=== PATIENT | male | born 1980 | race Caucasian/White ===

== ENCOUNTER 2022-07-08 14:22 | Outpatient (CLI) | payer BC, SELFPAY ==
[2022-07-09 13:32] LABS: Albumin* 4.7 g/dL (3.3-5.0); Chloride* 104 mmol/L (96-114); Sodium* 142 mmol/L (135-149)
[2022-07-09 13:33] LABS: Potassium* 4.1 mmol/L (3.6-5.1)
[2022-07-09 13:35] LABS: Alkaline Phosphatase* 51 U/L (40-150); Aspartate Amino Transferase* 25 U/L (12-35); Bilirubin Total* 0.5 mg/dL (0.1-1.5); Blood Urea Nitrogen* 17 mg/dL (5-24); Carbon Dioxide* 31 mmol/L (20-32); Estimated Glomerular Filt Rate 96 ml/min; Glucose* 84 mg/dL (60-115); Total Protein* 7.5 g/dL (6.0-8.3)
[2022-07-09 13:36] LABS: Alanine Aminotransferase* 26 U/L (4-50); Calcium* 9.5 mg/dL (8.4-10.6); HDL Cholesterol* 33 mg/dL (>=40); Triglycerides* 185 mg/dL (40-149)
[2022-07-09 14:16] LABS: HIV 1/2/P24 Combo Screen* Negative (Negative)
[2022-07-09 14:33] LABS: Hepatitis C Virus Antibody* Negative (Negative)
[2022-07-09 15:34] LABS: Cholesterol* 159 mg/dL (90-199); LDL Cholesterol Calculated 89 mg/dL (<100)
== END 2022-07-08 14:23 | disposition home or self-care (01) ==
PROVIDERS: PCP Family Medicine; Visit Provider Family Medicine
DX: R07.9 Chest pain, unspecified (principal); Z13.6 Encounter for screening for cardiovascular disorders; Z11.3 Encounter for screening for infections with a predominantly sexual mode of transmission
CPT/HCPCS: 80053; 80061; 86703; 86803

== ENCOUNTER 2024-05-13 14:48 | Outpatient (CLI) | payer BC, SELFPAY ==
--- OUTSIDE RECORDS SUMMARY | 2024-05-13 14:51 | XMS_ITS ---
Author Organization [facility] Address [address] [place] [address] Care Team Providers Care Cnc Lathe Machinist Name Role Phone Unavailable Unavailable Unavailable Surgery Details Not on file Complications Check Surgery Details section. Procedure Estimated Blood Loss Check Surgery Details section. Procedure Findings Check Surgery Details section. Procedure Specimens Taken Check Surgery Details section.
--- OUTSIDE RECORDS SUMMARY | 2024-05-13 14:51 | XMS_ITS | Clinical Summary ---
Author Organization [facility] Address [address] [place] [address] Care Team Providers Care Change Management Facilitator Name Role Phone None Reported, Pcp Primary Care Provider Unavail able Source Comments Patient records contain information from all sites at [facility]. For routine questions regarding patient records, call [phone] during business hours, M-F 8:00 AM - 5:00 PM Central Time. Record requests for emergency care only can be directed to [phone] at any time.[facility] Allergies Active Allergy Reactions Criticality Noted Date Comments Azithromycin GI intolerance,Nausea And Vomiting 09/26/2016 Medications albuterol (VENTOLIN HFA) 90 mcg/actuation inhaler Inhale 2 puffs every 4 (four) hours as needed. 09/26/2016 Active amoxicillin-pot clavulanate (AUGMENTIN) 875-125 mg per tablet 06/14/2021 Active ofloxacin (OCUFLOX) 0.3 % ophthalmic solution INSTILL ONE DROP IN THE RIGHT EYE FOUR TIMES A DAY 03/12/2021 Active Active Problems Problem Noted Date Diagnosed Date Asthma Exercise Induced Bronchospasm 12/16/2018 Immunizations Name Administration Dates Next Due DTP 11/04/1984,05/14/1981,03/10/1980 ,1979,1979 HepA / HepB 10/30/2010 HepA Adult 05/08/2011 HepB Adult 02/05/2006,09/04/2005 MMR 11/22/1990,12/18/1980 Polio, Unspecified 11/04/1984,05/14/1981, 980,1979 Td (Adult), adsorbed 09/24/2005,02/26/1995 Tdap 10/30/2010 Family History Medical History Relation Name Comments Celiac disease Paternal Grandmother Relation Name Status Comments Paternal Grandmother Social History Tobacco Use Types Packs/Day Years Used Date Smoking Tobacco: Some Days Cigarettes Smokeless Tobacco: Current Chew Last attempted to quit: 11/25/2018 Tobacco Cessation:Ready to Q uit: Not Asked; Counseling Given: Not Answered Alcohol Use Standard Drinks/Week Comments Yes 0 (1 standard drink = 0.6 oz pur e alcohol) Humiliation, Afraid, Rape, and Kick questionnair e Answer Date Recorded Within the last year, have y ou been afraid of your partner or ex-partner? No 06/19/2021 Within the last year, have y ou been humiliated or emotionally abused in other ways by your partner or ex-partner? No Within the last year, have y ou been kicked, hit, slapped, or otherwise physically hurt by your partner or ex-partner? No 06/19/2021 Within the last year, have y ou been raped or forced to have any kind of sexual activity by your partner or ex-partner? No 06/19/2021 Social Connection and Isolat ion Panel [NHANES] Answer Date Recorded In a typical week, how many times do you talk on the phone with family, friends, or neighbors? Twice a week 06/19/2021 How often do you get togethe r with friends or relatives? Once a week 06/19/2021 How often do you attend [facility] or jew services? 1 to 4 times per year 06/19/2021 Do you belong to any clubs o r organizations such as evangelical groups, unions, fraternal or athletic groups, or school groups? Yes 06/19/2021 How often do you attend meet ings of the clubs or organizations you belong to? More than 4 times per year 06/19/2021 Are you , , di vorced, , never , or living with a partner? 06/19/2021 AUDIT-C Answer Date Recorded Q1: How often do you have a drink containing alc ohol? Never 06/19/2021 Average Number of Drinks Not on file 021 Frequency of Binge Drinking Not on file 06/05 Overall Financial Resource Strain (CARDIA) Answe r Date Recorded How hard is it for you to pa y for the very basics like food, housing, medical care, and heating? Not very hard 06/19/2021 PHQ-2 Answer Date Recorded PHQ-2 Score 0 07/29/2019 [facility] - Occupational Stress Questionnaire Answer Date Recorded Do you feel stress - tense, restless, nervous, or anxious, or unable to sleep at night because your mind is troubled all the time - these days? To some extent 06/19/2021 Exercise Vital Sign Answer Date Recorde d On average, how many days pe r week do you engage in moderate to strenuous exercise (like a brisk walk)? 3 days 06/19/2021 On average, how many minutes do you engage in exercise at this level? 80 min 06/19/2021 Hunger Vital Sign Answer Date Recorded Within the past 12 months, y ou worried that your food would run out before you got the money to buy more. Never true 06/19/20 21 Within the past 12 months, t he food you bought just didn't last and you didn't have money to get more. Never true 06/19/2021 PRAPARE - Transportation Answer Date Re corded In the past 12 months, has l ack of transportation kept you from medical appointments or from getting medications? No 06/05 In the past 12 months, has l ack of transportation kept you from meetings, work, or from getting things needed for daily living? No 06/19/2021 Housing Stability Vital Sign Answer Maximiliano e Recorded In the last 12 months, was t here a time when you were not able to pay the mortgage or rent on time? No 06/19/2021 Number of Places Lived in the Last Year Not on f ile 06/19/2021 In the last 12 months, was t here a time when you did not have a steady place to sleep or slept in a jail (including now)? Yes 06/19/2021 Nutrition Answer Date Recorded On average, how many serving s of fruits and vegetables do you eat per day (serving size is equal to 1 cup or approximately the size of a tennis ball)? 2-3 06/19/2021 Dental Answer Date Recorded Dental: Regular Dentist No 07/16/19 23 Employment Answer Date Recorded Employment status Unemployed/not in th e paid workforce but seeking employment 06/19/2021 Education Answer Date Recorded What is the highest level of school you have completed or the highest degree you have received? 10th grade 06/19/2021 Sex and Gender Information Value Date Recorded Sex Assigned at Not on file Legal Sex Male 12:22 PM OUTBOARD SYSTEM OPERATOR Gender Identity Male 06/19/2021 12:39 PM OUTBOARD SYSTEM OPERATOR Sexual Orientation Straight 06/19/2021 12 :39 PM OUTBOARD SYSTEM OPERATOR Last Filed Vital Signs Vital Sign Reading Time Taken Comments Blood Pressure 123/84 11/17/2023 10:55 AM CDT Pulse 64 11/17/2023 10:55 AM CDT Temperature 36.3 ??C (97.3 ??F) 11/17/2023 10:55 AM C DT Respiratory Rate 19 06/21/2023 4:40 PM OUTBOARD SYSTEM OPERATOR Oxygen Saturation 99% 11/17/2023 10:55 AM CDT Inhaled Oxygen Concentration - - Weight 84.8 kg (187 lb) 11/17/2023 10:55 AM CDT Height 174 cm (5' 8.5) 03/05/2018 2:08 PM CDT Body Mass Index 28.02 03/05/2018 2:08 PM CDT Plan of Treatment Health Maintenance Due Date Last Done Comments Lipid (Cholesterol) Screening 1980 Pneumococcal vaccine (0-64 years) (1 of 2 - PCV) 1985 Hepatitis A Vaccines (3 of 3 - Hep A risk 3-dose series) 10/07/2011 05/08/2011, 10/30/2010 Asthma Control Test Questionnaire 12/16/2018 Asthma Management/Exacerbation Questionnaire (AMQ/AEQ) 12/16/2018 Asthma Action Plan 07/29/2020 07/29/2019 Tobacco Cessation counseling 06/19/2022 06/19/2021 Depression Screening (Annual PHQ-2) 07/06/2023 COVID-19 Vaccine (1 - season) 2024 Influenza Vaccine (#1) 2024 DTaP,Tdap,and Td Vaccines (8 - Td or Tdap) 08/21/2031 08/21/2021, 10/30/2010, 09/24/2005, Additional history exists IPV Vaccines Completed 11/04/1984, 11/0 03/1981, 1979, Additional history exists Hepatitis B Vaccines Completed 10/30/2010, 02/05/2006, 09/04/2005 HIV Screening Completed 07/29/2019, 12/02/2018 Hepatitis C Screening Completed 07/29/2019 HPV Vaccines Aged Out No longer eligi ble based on patient's age to complete this topic Procedures Procedure Name Priority Date/Time Associated Diagnosis Comments HCV AB SCRN W/REFLEX TO HCV PCR, S Routine 07/29/2019 11:30 AM OUTBOARD SYSTEM OPERATOR Sexually Transmitted Disease Counseling HIV-1/-2 AG AND AB SCREEN, PLASMA Routine 07/29/2019 11:30 AM OUTBOARD SYSTEM OPERATOR Sexually Transmitted Disease Counseling from Last 3 Months or Most Recently Relevant to Health Maintenance Results * HIV-1/-2 Ag and Ab Screen, Plasma (07/29/2019 11:30 AM OUTBOARD SYSTEM OPERATOR) HIV Ag/Ab Screen, P Negative Negative 07/29/2019 1:06 PM OUTBOARD SYSTEM OPERATOR [facility] Comment: Negative result does not rule out HIV infection. If exposure to HIV infection occurred <14 days ago, contact the laboratory to request addition of HIV-1 RNA detection / quantification test. HIV-1 p24 Ag Screen, P Negative Negative 07/29/2019 1:06 PM OUTBOARD SYSTEM OPERATOR [facility] Comment: Negative result does not rule out HIV infection. If exposure to HIV infection occurred <14 days ago, contact the laboratory to request addition of HIV-1 RNA detection / quantification test. HIV-1 Ab Screen, P Negative Negative 2019 1:06 PM OUTBOARD SYSTEM OPERATOR [facility] Comment: Negative result does not rule out HIV infection. If exposure to HIV infection occurred <14 days ago, contact the laboratory to request addition of HIV-1 RNA detection / quantification test. HIV-2 Ab Screen, P Negative Negative 2019 1:06 PM OUTBOARD SYSTEM OPERATOR [facility] Comment: Negative result does not rule out HIV infection. If exposure to HIV infection occurred <14 days ago, contact the laboratory to request addition of HIV-1 RNA detection / quantification test. Blood (Blood, Venous) 07/29/2019 11:30 AM OUTBOARD SYSTEM OPERATOR 07/29/2019 11:30 AM OUTBOARD SYSTEM OPERATOR us Patricio Rice APRN, M.S. LAB MICROBIOLOGY - BLOOD ORDERABLES Final Result [facility] [address] [facility] [place] [address], [place] [facility] [place] [address] [place] [address] * HCV Ab Scrn w/Reflex to HCV PCR, Serum (07/29/2019 11:30 AM OUTBOARD SYSTEM OPERATOR) HCV Ab Screen, S Negative Negative 07/30/2019 9:16 AM OUTBOARD SYSTEM OPERATOR [facility] Comment:Eicksk-yk-ecowcl rat io is <1.00. Blood (Blood, Venous) 07/29/2019 11:30 AM OUTBOARD SYSTEM OPERATOR 07/30/2019 8:04 AM OUTBOARD SYSTEM OPERATOR us Patricio Rice APRN, M.S. LAB MICROBIOLOGY - BLOOD ORDERABLES Final Result [facility] [address] [place] [address] [facility] Dept. of Laboratory Medicine and Pathology [address] [place] [address] from Last 3 Months or Most Recently Relevant to Health Maintenance Insurance [employer] Care Teams Change Management Facilitator Relationship Specialty Start Date End Date None Reported, Pcp PCP - General Family Medicine 06/21/23
--- OUTSIDE RECORDS SUMMARY | 2024-05-13 14:51 | XMS_ITS | Encounter Summary ---
Author Organization [facility] Address [address] [address] Phone Care Team Providers Care Time Study Technician Name Role Phone Elsewhere, Pcp Primary Care Provider Unavailabl e Reason for Visit * Reason Onset Date Comments Return Call 03/01/2024 Encounter Details Date Type Department Care Team (Late st Contact Info) Description 03/01/[address] [facility] EAR, NOSE AND THROAT [address] [place] [phone] Mariela Schwarz, ASSOCIATE PROFESSOR OF MANAGEMENT Return Call Social History Tobacco Use Types Packs/Day Years Used Date Smoking Tobacco: Never Smokeless Tobacco: Current Snuff Comments:refused counseling [facility] Utilities Answer Date Recorded In the past 12 months has th e electric, gas, oil, or water company threatened to shut off services in your home? No 03/01/2024 PHQ-2 Answer Date Recorded PHQ-2 Total 0 03/01/2024 Hunger Vital Sign Answer Date Recorded Within the past 12 months, y ou worried that your food would run out before you got the money to buy more. Never true 03/01/20 24 Within the past 12 months, t he food you bought just didn't last and you didn't have money to get more. Never true 03/01/2024 PRAPARE - Transportation Answer Date Re corded In the past 12 months, has l ack of transportation kept you from medical appointments or from getting medications? No 02/04 In the past 12 months, has l ack of transportation kept you from meetings, work, or from getting things needed for daily living? No 03/01/2024 Housing Stability Vital Sign Answer Maximiliano e Recorded In the last 12 months, was t here a time when you were not able to pay the mortgage or rent on time? No 03/01/2024 In the past 12 months, how m any times have you moved where you were living? 0 03/01/2024 At any time in the past 12 m [facility], were you homeless or living in a senior living (including now)? 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 Let him know that at this point in time we don't have anything sooner and we don't hold a wait list. Suggested that he get a referral elsewhere if he is looking to get in sooner or he can call periodically to check for cancellations. ----- Message from Yesy Beckham sent at 03/01/2024 11:20 AM CDT ----- Dr. Kumari has referred this patient to you for Sore throat [J02.9] Hoarse [R49.0]. He travels for work and is only in [place] until the end of Mar. Any way to get him in sooner then Jun? I have added him to a wait list. Please call him at [phone] Thanks, Chelsey Boggs documented in this encounter Plan of Treatment Not on file documented as of this encounter Visit Diagnoses Not on filedocumented in this encounter Care Teams Time Study Technician Relationship Specialty Start Date End Date Elsewhere, Pcp PCP - General 09/16/01 documented as of this encounter
--- OUTSIDE RECORDS SUMMARY | 2024-05-13 14:51 | XMS_ITS | Encounter Summary ---
Author Organization [facility] Address [address] [address] Phone Care Team Providers Care Biology Teacher Name Role Phone Elsewhere, Pcp Primary Care Provider Unavailabl e Reason for Visit * Reason Onset Date Comments Referral 03/01/2024 Encounter Details Date Type Department Care Team (Late st Contact Info) Description 03/01/2024 Telephone [facility] [address] [place] [id number] Patti Antony social work nurse Social History Tobacco Use Types Packs/Day Years Used Date Smoking Tobacco: Never Smokeless Tobacco: Current Snuff Comments:refused counseling [facility] Utilities Answer Date Recorded In the past [...] any time in the past 12 m [facility], were you homeless or living in a fpc (including now)? No 03/01/2024 Sex and Gender Information Value Date Recorded Sex Assigned at Not on file Legal Sex Male 7:00 PM DRAW BENCH OPERATOR Gender Identity Not on file Sexual Orientation Not on file documented as of this encounter Miscellaneous Notes * Telephone Encounter - Patti Antony RN - 03/01/2024 3:20 PM CDT Updated patient that the referral will be sent to him in the mail. * Telephone Encounter - Patti Antony RN - 03/01/2024 3:17 PM CDT ----- Message from Regla Holland CMA sent at 03/01/2024 3:09 PM CDT ----- Regarding: FW: referral question ----- Message ----- From: Nicole Pandya Sent: 03/01/2024 2:34 PM CDT To: [facility] Subject: referral question Provider: Dr. Kumari Date: 03/01/2024 Time: 2:32 PM Patient's Date of : 1980 Person Calling: Enrrique Reason for call: calling in regards to referral to ENT from provider-wants to know if that can be emailed to him since he will be going [facility] but [facility]-please advise Pharmacy: Allergies: -- Azithromycin -- Diarrhea and Nausea Only documented in this encounter Plan of Treatment Not on file documented as of this encounter Visit Diagnoses Not on filedocumented in this encounter Care Teams Biology Teacher Relationship Specialty Start Date End Date Elsewhere, Pcp PCP - General 09/16/01 documented as of this encounter
--- OUTSIDE RECORDS SUMMARY | 2024-05-13 14:51 | XMS_ITS | Referral Summary ---
Author Organization [facility] Address [address] [place] [address] Care Team Providers Care Custom Bike Builder Name Role Phone None Reported, Pcp Primary Care Provider Unavail able Source Comments Patient records contain information from all sites at [facility]. For routine questions regarding patient records, call [phone] during business hours, M-F 8:00 AM - 5:00 PM Central Time. Record requests for emergency care only can be directed to [phone] at any time.[facility] Allergies Active Allergy Reactions Criticality Noted Date [...] 980,1979 Td (Adult), adsorbed 09/24/2005,02/26/1995 Tdap 10/30/2010 Social History Tobacco Use Types Packs/Day Years [...] week 06/19/2021 How often do you attend chur or advent services? 1 to 4 times per year 06/19/2021 Do you belong to any clubs o r organizations such as latter day groups, unions, fraternal or athletic groups, or [...] Frequency of Binge Drinking Not on file 12/1 11/2020 Overall Financial Resource Strain (CARDIA) Answe r Date Recorded How hard is it for you to pa y for the very basics like food, housing, medical care, and heating? Not very hard 06/19/2021 PHQ-2 Answer Date Recorded PHQ-2 Score 0 07/29/2019 [facility] - Occupational Stress Questionnaire Answer Date Recorded [...] on file Legal Sex Male 12:22 PM DRAWER FITTER Gender Identity Male 06/19/2021 12:39 PM DRAWER FITTER Sexual Orientation Straight 06/19/2021 12 :39 PM DRAWER FITTER Last Filed Vital Signs Vital Sign Reading Time Taken Comments Blood Pressure 123/84 11/17/2023 10:55 AM CDT Pulse 64 11/17/2023 10:55 AM CDT Temperature 36.3 ??C (97.3 ??F) 11/17/2023 10:55 AM C DT Respiratory Rate 19 06/21/2023 4:40 PM DRAWER FITTER Oxygen Saturation 99% 11/17/2023 10:55 AM CDT Inhaled Oxygen Concentration - - Weight 84.8 kg (187 lb) 11/17/2023 10:55 AM CDT Height 174 cm (5' 8.5) 03/05/2018 2:08 PM CDT Body Mass Index 28.02 03/05/2018 2:08 PM CDT Plan of Treatment Not on file Procedures Procedure Name Priority Date/Time Associated Diagnosis Comments HCV AB SCRN W/REFLEX TO HCV PCR, S Routine 07/29/2019 11:30 AM DRAWER FITTER Sexually Transmitted Disease Counseling HIV-1/-2 AG AND AB SCREEN, PLASMA Routine 07/29/2019 11:30 AM DRAWER FITTER Sexually Transmitted Disease Counseling from Last 3 Months or Most Recently Relevant to Health Maintenance Results * HIV-1/-2 Ag and Ab Screen, Plasma (07/29/2019 11:30 AM DRAWER FITTER) HIV Ag/Ab Screen, P Negative Negative 07/29/2019 1:06 PM DRAWER FITTER [facility] Comment: Negative result does not rule out HIV infection. If exposure to HIV infection occurred <14 days ago, contact the laboratory to request addition of HIV-1 RNA detection / quantification test. HIV-1 p24 Ag Screen, P Negative Negative 07/29/2019 1:06 PM DRAWER FITTER [facility] Comment: Negative result does not rule out HIV infection. If exposure to HIV infection occurred <14 days ago, contact the laboratory to request addition of HIV-1 RNA detection / quantification test. HIV-1 Ab Screen, P Negative Negative 2019 1:06 PM DRAWER FITTER [facility] Comment: Negative result does not rule out HIV infection. If exposure to HIV infection occurred <14 days ago, contact the laboratory to request addition of HIV-1 RNA detection / quantification test. HIV-2 Ab Screen, P Negative Negative 2019 1:06 PM DRAWER FITTER [facility] Comment: Negative result does not rule out HIV infection. If exposure to HIV infection occurred <14 days ago, contact the laboratory to request addition of HIV-1 RNA detection / quantification test. Blood (Blood, Venous) 07/29/2019 11:30 AM DRAWER FITTER 07/29/2019 11:30 AM DRAWER FITTER Patricio Rice APRN., M.S. LAB MICROBIOLOGY - BLOOD ORDERABLES Final Result [facility] [address] [place] [address], [facility] [place] [address] * HCV Ab Scrn w/Reflex to HCV PCR, Serum (07/29/2019 11:30 AM DRAWER FITTER) HCV Ab Screen, S Negative Negative 07/30/2019 9:16 AM DRAWER FITTER [facility] Comment:Cpxyzd-zz-iwhwox rat io is <1.00. Blood (Blood, Venous) 07/29/2019 11:30 AM DRAWER FITTER 07/30/2019 8:04 AM DRAWER FITTER Gallo Rice APRN.N .P., M.S. LAB MICROBIOLOGY - BLOOD ORDERABLES Final Result [facility] [address] [place] [address] [facility] Dept. of Laboratory Medicine and Pathology [address] [place] [address] from Last 3 Months or Most Recently Relevant to Health Maintenance Insurance [employer] Care Teams Custom Bike Builder Relationship Specialty Start Date End Date None Reported, Pcp PCP - General Family Medicine 06/21/23
--- OUTSIDE RECORDS SUMMARY | 2024-05-13 14:51 | XMS_ITS | Encounter Summary ---
Author Organization [facility] Address [address] [place] [address] Care Team Providers Care Automation Mechanic Name Role Phone None Reported, Pcp Primary Care Provider Unavail able Reason for Visit * Reason Onset Date Comments Outpatient COVID-19 Testing 05/23/2020 Encounter Details Date Type Department Care Team (Latest Contact Info) Description 05/23/2020 External Outreach Department of Family Medicine in [address] [phone] Dianna Patel, PATRICIA, C.N.P. Infection Upper Respiratory (Primary Dx) Social History Tobacco Use Types Packs/Day Years Used Date Smoking Tobacco: Former Smokeless Tobacco: Former Chew Quit: 11/25/2018 Alcohol Use Standard Drinks/Week Comments Yes 0 [...] 06/19/2021 How often do you attend chur ch or catholic services? 1 to 4 times per year 06/19/2021 Do you belong to any clubs o r organizations such as pentecostal groups, unions, fraternal or athletic groups, or [...] Answer Date Recorded PHQ-2 Score 0 07/29/2019 [facility] [place] of Occupat ional Health - Occupational Stress [...] place to sleep or slept in a nursing home (including now)? Yes 06/19/2021 Nutrition Answer Date [...] e paid workforce but seeking employment 06/19/2021 Sex and Gender Information Value Date Recorded Sex Assigned at Not on file Legal Sex Male 12:22 PM PROFESSIONAL DEVELOPMENT DIRECTOR Gender Identity Male 06/19/2021 12:39 PM PROFESSIONAL DEVELOPMENT DIRECTOR Sexual Orientation Straight 06/19/2021 12 :39 PM PROFESSIONAL DEVELOPMENT DIRECTOR documented as of this encounter Progress Notes * Rudi Boland, C.M.A. - 05/23/2020 8:58 AM CST Encounter created for the drive-through COVID-19 testing. ESSIONAL DEVELOPMENT DIRECTOR documented in this encounter Miscellaneous Notes * Addendum Note - Tami Brody V., C.M.AKylee - 05/23/2020 8:58 AM CSTAddended by: TAMI BRODY V on: 05/27/2020 09:22 AM Modules accepted: Level of Service, SmartSet ESSIONAL DEVELOPMENT DIRECTOR documented in this encounter Plan of Treatment Not on file documented as of this encounter Procedures Procedure Name Priority Date/Time Associated Diagnosis Comments SARS CORONAVIRUS-2 RNA, V Routine 05/24/2020 3:32 PM PROFESSIONAL DEVELOPMENT DIRECTOR Infection Upper Respiratory documented in this encounter Results * SARS Coronavirus-2 RNA, V Symptomatic (05/24/2020 3:32 PM PROFESSIONAL DEVELOPMENT DIRECTOR) SARS-CoV-2 Specimen Source Swab, Nasopharynx 05/25/2020 2:48 AM PROFESSIONAL DEVELOPMENT DIRECTOR MKTO SARS CoV-2 RNA, TMA Undetected Undetected 05/25/2020 2:48 AM PROFESSIONAL DEVELOPMENT DIRECTOR MKTO Comment: SARS-CoV-2 RNA absent. This result does not rule out COVID-19 in the patient, as the sensitivity of the test depends on the timing of the specimen collection and the quality of the specimen. Result should be correlated with patient's history and clinical presentation. ----ADDITIONAL INFORMATION---- This test is performed using the Aptima SARS-CoV-2 assay ([employer] which has received Emergency Use Authorization (EUA) by the U.S. Food and Drug Administration. Fact sheets for this Emergency Use Authorization (EUA) assay can be found at the following links: For Healthcare Providers: https://www.fda.gov/media/022611/download For Patients: https://www.fda.gov/media/113963/download Varies (Nasopharynx) 05/24/2020 3:32 PM PROFESSIONAL DEVELOPMENT DIRECTOR 05/24/2020 8:08 PM PROFESSIONAL DEVELOPMENT DIRECTOR us Dianna Patel APRN, C.N.P. LAB MICROBIOLOGY - GENERAL ORDERABLES Final Result [facility] [address] [place] [id number], [facility] in [address] [address] documented in this encounter Visit Diagnoses Diagnosis Infection Upper Respiratory- Primary documented in this encounter Additional Health Concerns Infection Onset Date Last Indicated Resolved Time COVID19 Pending 05/23/2020 05/24/2020 05/25/2020 2 :49 AM PROFESSIONAL DEVELOPMENT DIRECTOR COVID19 Pending 06/07/2020 06/07/2020 06/08/2020 4 :57 AM PROFESSIONAL DEVELOPMENT DIRECTOR COVID19 Pending 06/09/2020 06/09/2020 06/10/2020 1 1:49 PM PROFESSIONAL DEVELOPMENT DIRECTOR COVID19 Pending 06/19/2021 06/19/2021 06/19/2021 1 0:18 PM PROFESSIONAL DEVELOPMENT DIRECTOR Assessment Noted Time PHQ-9 Depression Total Score: 15 12/02/ 019 1:13 PM CDT documented as of this encounter Care Teams Automation Mechanic Relationship Specialty Start Date End Date None Reported, Pcp PCP - General Family Medicine 06/21/23 documented as of this encounter
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
--- OUTSIDE RECORDS SUMMARY | 2024-05-13 14:51 | XMS_ITS | Encounter Summary ---
Author Organization [facility] Address [address] [address] Phone Care Team Providers Care Component Lab Tech Name Role Phone Elsewhere, Pcp Primary Care Provider Unavailabl e Encounter Details Date Type Department Care Team (Latest Contact Info) Description 03/15/2024 Travel Social History Tobacco Use Types Packs/Day Years Used Date Smoking Tobacco: Every Day Cigarettes Passive Smoke Exposure: Current Smokeless Tobacco: Current Snuff Comments:refused counseling [facility] Utilities Answer Date Recorded In [...] any time in the past 12 m [facility], were you homeless or living in a [facility] (including now)? 

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
--- OUTSIDE RECORDS SUMMARY | 2024-05-13 14:51 | XMS_ITS | Encounter Summary ---
Author Organization [facility] Address [address] [address] Phone Care Team Providers Care Boarding Specialist Name Role Phone Elsewhere, Pcp Primary Care Provider Unavailabl e Reason for Referral * Office Visit (Routine) - New Request Specialty Diagnoses / Procedures Referred By Atiya t Referred To Contact Ent-Otolaryngology Diagnoses Sore throat Hoarse Brad Kumari MD [facility] [place] [address] Phone: tel: fax: Referral ID Status Reason Start Date Expiration Date V isits Requested Visits Authorized [id number] New Request 03/01/2024 03/01/2025 1 1 Question Answer What type of ENT care are you looking for? (Primary Concern ? Choose from options provided or type in a galvan word e.g Tinnitus) Head/Neck [6] Please select the type of head and neck concern: Other [6] Comments Sore throat, hoarseness for 6 weeks Main ENT Phone #: [phone]. ## If patient has been seen in the past please schedule with the same provider. Please inform patients to arrive 20 minutes early if they are bringing in a disc with CT Results. ## Location of Main ENT: [address] [place] [address] Clinic, 4th floor Parking in the [place] on the 1st or 3rd floors Reason for Visit * Reason Comments Sore Throat Encounter Details Date Type Department Care Team (Late st Contact Info) Description 03/01/2024 10:00 AM CDT Office Visit [facility] [address] [place], [place] [id number] Brad Kumari MD [address] [place] [address] Sore throat (Primary Dx); Hoarse Social History Tobacco Use Types Packs/Day Years Used Date Smoking Tobacco: Never Smokeless Tobacco: Current Snuff Comments:refused counseling [facility] Utilities Answer Date Recorded In the [...] any time in the past 12 m [facility], were you homeless or living in a prison (including now)? 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 Office Visit Note 03/01/2024 Patient: Enrrique Abbott : 1980 Primary Care Provider: Pcp Elsewhere Enrrique Abbott is a 43 year old male who presents for sore throat and hoarseness. Patient began having symptoms 6 weeks ago including abnormal throat symptoms and a raw tongue. Patient does chew tobacco and has since 2004. He does not have history of head neck cancer. Patient especially last 3 weeks has noticed worsening sore throat on the right side of the throat. He does nothave a sense of fullness in the back of the throat. He has been prescribed eyedrops for eye infection, presumably bacterial conjunctivitis. He has also had sinus symptoms. He has history of sinus infection and does not have current sinus infection symptoms. He also notes hoarseness present for 6 weeks. He also endorses fevers and chills but is unclear if he has taken his temperature and what the temperature has been. He did test positive for COVID-19 2 weeks ago. He denies respiratory symptoms including cough and shortness of breath. There is no problem list on file for this patient. Medications Current Outpatient Medications Medication Sig Dispense Refill diclofenac potassium (CATAFLAM) 50 MG tablet Take 1 Tab by mouth three times a day. Take with food.30 Tab 0 No current facility-administered medications for this visit. Physical Exam Vitals: 03/01/24 0946 BP: 111/79 Pulse: 65 SpO2: 96% Weight: 191 lb 12.8 oz (87 kg) Constitutional: alert, oriented, in no distress, friendly, not talking with hot potato voice CV: Heart regular rate and rhythm, no murmur Resp: Lungs clear to auscultation bilaterally, no wheezes or crackles bilaterally HEENT: No tenderness to percussion of frontal maxillary sinuses bilaterally, left tympanic membraneslightly erythematous with no bulging, right tympanic membrane without erythema or bulging. There is no abnormality with visualization of posterior oropharynx as I do not appreciate significant redness or purulence or enlargement of tonsils bilaterally. I do not appreciate lymphadenopathy and thereis no tenderness to palpation of the submandibular areas bilaterally or anterior neck bilaterally. Assessment/Plan (J02.9) Sore throat (primary encounter diagnosis) Plan: STREP A, MOLECULAR DETECTION, APPT WITH ENT, STREP A, MOLECULAR DETECTION (R49.0) Hoarse Plan: APPT WITH ENT Patient with 6 weeks of sore throat and 6 weeks of hoarseness. I recommended referral to ENT given over 2 weeks of hoarseness especially in context of chewing tobacco. I of course would recommend patient to quit tobacco. We did discuss the possibility of head neck cancer and we will appreciate ENT r ecommendations. I also performed a swab of posterior oropharynx for strep throat which patient tolerated well without immediate complication. We did discuss anterior nares testing for influenza, COVID-19, RSV but these tests would likely notchange her management and patient did test positive per his report for COVID-19 2 weeks ago. We diddiscuss that symptoms all could be due to COVID or it is possible that COVID could be separate fromhis hoarseness and sore throat. We will plan to treat with antibiotics if strep test is positive and not to treat with antibiotics if negative. Will appreciate ENT recommendations. Return prn, for with Dr. Kumrai. Note: I spent 23 minutes caring for the patient today. This time was spent reviewing the patient's medical record, performing history and physical exam, discussing medical decision making with the patient, and documenting today's visit. Brad Kumari MD 03/01/2024 documented in this encounter Plan of Treatment Scheduled Referrals Name Type Priority Associated Diagnoses Orde r Schedule APPT WITH ENT REFERRAL Routine Sore throat Hoarse Ordered: 03/01/2024 documented as of this encounter Procedures Procedure Name Priority Date/Time Associated Diagnosis Comments STREP A, MOLECULAR DETECTION Routine 03/01/2024 10:52 AM CDT Sore throat documented in this encounter Results * STREP A, MOLECULAR DETECTION (03/01/2024 10:52 AM CDT) Streptococcus pyogenes (Group A Strep) Not Detected Not Detected 03/01/2024 11:27 AM CDT [facility] Swab STRUCTURE OF THROAT / Unknown Non-blood collection / Unknown 03/01/2024 10:52 AM CDT 03/01/2024 11:02 AM CDT Narrative [facility] - 03/01/2024 11:27 AM CDT Test results must be interpreted within the context of all relevant clinical and laboratory findings. Method Information This test uses the [employer] Xpert Xpress Strep A assay to detect Streptococcus pyogenes (Group A Beta-Hemolytic Streptococcus) DNA by real-time polymerase chain reaction (PCR) on the [employer] GeneXpert Instrument System. Brad Kumari MD MICROBIOLOGY - GENERAL RICHARD LI Final Result [facility] [address] [place] [address], [facility] documented in this encounter Visit Diagnoses Diagnosis Sore throat- Primary Acute pharyngitis Hoarse Dysphonia documented in this encounter Care Teams Boarding Specialist Relationship Specialty Start Date End Date Elsewhere, Pcp PCP - General 09/16/01 documented as of this encounter
--- OUTSIDE RECORDS SUMMARY | 2024-05-13 14:51 | XMS_ITS | Encounter Summary ---
Author Organization [facility] Address [address] [place] [id number] Phone Care Team Providers Care Slice Plug Cutter Operator Helper Name Role Phone Elsewhere, Pcp Primary Care Provider Unavailabl e Encounter Details Date Type Department Care Team (Latest Contact Info) Description 03/01/2024 Travel Social History Tobacco Use Types Packs/Day Years Used Date Smoking Tobacco: Never Smokeless Tobacco: Current Snuff Comments:refused counseling [facility] Utilities Answer Date Recorded In the [...] any time in the past 12 m [facility], were you homeless or living in a prison (including now)? 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
--- OUTSIDE RECORDS SUMMARY | 2024-05-13 14:51 | XMS_ITS | Encounter Summary ---
Author Organization [facility] Address [address] [address] Phone Care Team Providers Care Sports Physical Therapist Name Role Phone Elsewhere, Pcp Primary Care Provider Unavailabl e Reason for Visit * Reason Onset Date Comments Results 03/16/2024 Rib x-rays Encounter Details Date Type Department Care Team (Late st Contact Info) Description 03/16/2024 Telephone [facility] [address] [place] [id number] Rita Nath RN Results (Rib x-rays) Social History Tobacco Use Types Packs/Day Years Used Date Smoking Tobacco: Every Day Cigarettes Passive Smoke Exposure: Current Smokeless Tobacco: Current Snuff Comments:refused counseling [facility] Utilities Answer Date Recorded In [...] time in the past 12 m [facility], were you homeless or living in a prison (including now)? 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 Pt verbalized understanding. * Telephone Encounter - Rita Nath RN - 03/16/2024 9:27 AM CDT ----- Message from Pavel Messina MD sent at 03/16/2024 8:33 AM CDT ----- Please inform patient that results show no rib fracture. However, X-ray cannot see occult fractures. Please inform patient most rib fractures heal within six weeks and there is no indication at this time for further intervention. Please reassure patient that overall, it appears patient had no damage to heart, lungs, or other internal organs. Patient potentially has contused his pectoralis muscle and this will also take similar time to heal. Many patients are able to resume daily activities much sooner than 6 weeks, but activity should be limited if causing pain. Patient to take Tylenol and ibuprofen regularly with oxycodone at night as needed. Patient to follow-up in clinic if pain does not improve over the course of the next 3 weeks. Thank you, Pavel Messina documented in this encounter Plan of Treatment Not on file documented as of this encounter Visit Diagnoses Not on filedocumented in this encounter Care Teams Sports Physical Therapist Relationship Specialty Start Date End Date Elsewhere, Pcp PCP - General 09/16/01 documented as of this encounter
--- NOTE | 2024-05-13 15:30 | CRLHL7_ITS ---
For Patients: As a result of the Century Cures Act, medical imaging exams and procedure reports are released immediately into your electronic medical record. You may view this report before your referring provider. If you have questions, please contact your health care provider. Indication: UNSPECIFIED ABDOMINAL PAIN- LLQ X5 DAYS AGO Technique: CT abdomen/pelvis with IV contrast, 91 mL Isovue 370 Comparison: None Findings: Lower thorax: No acute process. Bilateral sub 6 millimeter solid pulmonary nodules. 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 No suspicious hepatic lesions. The gallbladder and biliary system are unremarkable. The spleen, pancreas, and bilateral adrenal glands are unremarkable. The kidneys are normal in size and perfusion a normal fashion. No suspicious enhancing renal masses/lesions. Simple appearing left renal cysts. No renal calculi or hydroureteronephrosis. The bladder is unremarkable. Seminal vesicles, prostate, and visualized external genitalia are within normal limits in appearance. Partially visualized bilateral hydroceles. There is no evidence of bowel obstruction. The appendix is not visualized. Colonic diverticulosis without CT evidence of acute diverticulitis. Fat density ovoid structure seen immediately anterior to the descending colon with thin high density rim and surrounding fat stranding measuring 1.9 centimeters in greatest dimension (series number 2, image 95; series 4, image 62) consistent with epiploic appendagitis versus omental infarction. No free fluid or free air. No abscess. No abdominopelvic lymphadenopathy. The vasculature is unremarkable. Small fat containing umbilical and right inguinal hernias. The osseous structures are without acute abnormality. There are some degenerative changes seen in the spine. Focus of sclerosis along the inferior endplate of the T11 vertebral body. Impression: 1. Epiploic appendagitis versus omental infarction seen immediately anterior to the descending colon as detailed above. 2. Multiple solid sub 6 millimeter pulmonary nodules bilaterally. If patient is at high risk for developing lung malignancy, consider CT chest in 12 months; otherwise, no routine follow-up imaging is needed. Please note that all CT scans at this facility use dose modulation, iterative reconstruction, and/or weight-based dosing when appropriate to reduce radiation dose to as low as reasonably achievable. Dictated by Enrrique Gonzales MD @ 05/13/2024 4:34:49 PM (Electronically Signed)
== END 2024-05-13 14:49 | disposition home or self-care (01) ==
LOC: CT 14:49
PROVIDERS: PCP Family Medicine; Visit Provider Family Medicine
DX: R10.9 Unspecified abdominal pain (principal); K63.89 Other specified diseases of intestine; R91.1 Solitary pulmonary nodule; R10.32 Left lower quadrant pain; R91.8 Other nonspecific abnormal finding of lung field
CPT/HCPCS: 74177; 80076; Q9967